=== PATIENT | female | born 1985 | race Caucasian/White ===

== ENCOUNTER 2016-09-07 22:34 | Inpatient (IN) | payer OTHER ==
[~2016-09-07] VITALS: Ht 160 cm; Wt 80.3 kg
[~2016-09-07 22:34] MED LIST: ALBU17AE22 INH; LEVO25CA2 PO; [UNRECOGNIZED DRUG - CODE] PO; [UNRECOGNIZED DRUG - CODE] PO
[2016-09-08] MEDS ORDERED: Lactated Ringer's 1,000 ML IV ONE (00:12)
[2016-09-08] MEDS ORDERED: Lactated Ringer's 1,000 ML IV PRN (00:42)
[2016-09-08] MEDS ORDERED: Oxytocin 10 Unit/mL Inj IM PRN ×2 (00:45→06:40)
[2016-09-08] MEDS ORDERED: Oxytocin 30 Units/500 mL LR 30 UNITS in IV Premix 1 EACH IV PRN ×3 (00:45→06:40)
[2016-09-08] MEDS ORDERED: Ondansetron 2 mg/mL 2 mL Inj IVPUSH PRN ×2 (00:45→03:15)
[2016-09-08] MEDS ORDERED: Sodium Chloride LOK Flush 10 mL Syringe IVFLUSH PRN (00:45)
[2016-09-08] MEDS ORDERED: Hemorrhage Kit, Post Partum XX ONE ×2 (00:45→06:40)
[2016-09-08] MEDS ORDERED: Carboprost 250 mCg/mL Inj IM PRN ×2 (00:45→06:40)
[2016-09-08] MEDS ORDERED: Methylergonovine 0.2 mg/mL Inj IM PRN ×2 (00:45→06:40)
[2016-09-08 00:54] LABS: Mean Corpuscular Hemoglobin 29.8 pg (27.0-35.0); Mean Corpuscular Volume 89.2 fL (81-100)
[2016-09-08] MEDS ORDERED: Lactated Ringer's 1,000 ML IV SCH ×2 (01:10→06:36)
--- NOTE | 2016-09-08 01:46 | PCM.HPOB ---
Subjective Date of Service: Sep 08, 2016 Referring Provider: Admitting Physician: Shad Watkins DO Primary Care Physician: Igor Dawkins MD Attending Physician: Shad Watkins DO Chief Complaint leaking fluids History of Present History of Present Illness 31-year-old G5 P 2 SAB 2 at 34 weeks 4 days by first trimester ultrasound and certain LMP presents after she began spontaneously leaking large amounts of fluid at around 2130 last evening. She has had intermittent contractions for the past 4 weeks but over the past 2-3 days these have become stronger and she feels them more in her low back. She is experiencing contractions every 3 minutes. She has had intermittent amounts of bloody show. Past medical history: 1. She is a type II diabetic that is well controlled on regular insulin 4-6 units twice a day. She is also taking metformin 1000 milligrams twice a day. 2. Hypothyroidism on levothyroxine 50 g daily. 3. History of genital warts with 4 frozen off previously in the remote past 4. PCOS Past surgical history 1. Appendectomy in 1999 2. Laparoscopic cholecystectomy in 2007 3. Right ovarian laparoscopic cystectomy in 2010 4. D&C and hysteroscopy in 2013 for endometrial polyps/fibroids OB history: She is co-managed with [facility] perinatology and since 32 weeks has been getting twice weekly NSTs and YARELY's which have been normal. echo was normal as well as quad screen. Baby has had normal growth. In her second trimester she developed maternal tachycardia and cardiology was consulted and echocardiogram was performed which returned normal. This tachycardia resolved spontaneously without intervention. She has had ongoing contractions for the past 4 weeks which has made it quite uncomfortable for her. She has had 2 previous uncomplicated 's at term Social history: She lives at home with her Zane and her 2 children. 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 Past Medical History Hx Tobacco Use: No Hx Alcohol Use: No Hx Substance Use: No Genetic Screening/Counseling Genetic Screening/Counseling: Negative Baby father-had child w defect: No Allergy Coded Allergies: Sulfa (Sulfonamide Antibiotics) (Verified Allergy, Unknown, 09/08/16) ciprofloxacin (Verified Allergy, Unknown, 09/08/16) Exam Vital Signs See GE record Exam baseline 150, positive accelerations, no decelerations, moderate beat-to- beat variability, category 1 Objective Cervix 2 cm, 30% effaced, -3, moderate consistency, midline Constitutional: Well-developed, Well-nourished, Normal habitus HEENT: Atraumatic, PERRLA, EOMI, Scleral Anicteric Lungs: Clear to Auscultation, Clear to Percussion, Normal Air Movement Heart: Exam Unremarkable, Regular Rate/Rhythm Fundus 37 cm Abdomen: Gravid, Normal bowel sounds, Soft, No tenderness Extremities: Pulses Palpable x4, Warm, No Edema Neurological/Psychiatric: Alert, Oriented X3, Cooperative, Mild Distress Neuro: Grossly Neurologically Intact Gynecologic: Normal: Adnexa/Parametria, Anus/Perineum, Bladder, Breasts, Cervix , External Genitalia, Rectal, Urethral Meatus, Uterus, Vagina/Pelvic Support Labs/Diagnostics Labs See record Lab/Diagnostic Information Laboratory Tests 72 Hours Test 09/07/16 22:45 White Blood Count 14.0th/mm3 (3.8-10.1) Red Blood Count 3.99mil/mm3 (3.90-5.20) Hemoglobin 11.9g/dL (12.0-15.6) Hematocrit 35.6% (35.0-46.0) Mean Corpuscular Volume 89.2fL (81-100) Mean Corpuscular Hemoglobin 29.8pg (27.0-35.0) Mean Corpuscular Hemoglobin Concent 33.4% (32.0-37.0) Red Cell Distribution Width 12.4% (12.3-15.4) Platelet Count 345bil/L (150-400) Maternal Blood Type: A (positive) Hx Rho(D) Immune Globulin: No Antibody Screen: negative Group B Strep Results: Negative Previous Infant with GBS: No Rubella: Immune Lab History: Positive for: Hx Chicken Pox, Negative for: Hx Gonorrhea, Hx HIV, Hx Herpes, Hx Syphilis OB Intrapartum Assessment/Plan Assessment Assessment 1. 31-year-old at 37 weeks 4 days by certain LMP and first trimester ultrasound here with spontaneous rupture of membranes at 1930 on 09/07 currently having contractions but without cervical change 2. Desires epidural 3. Reassuring heart tones 4. Well-controlled type II diabetes on insulin 5. Hypothyroidism 6. GBS negative Plan 1. After consultation with OB, initiate Pitocin augmentation 2. Epidural when patient desires, discussed with anesthesia 3. Continue NPH 4 units twice a day, metformin 1000 milligrams twice a day, monitor blood glucose before meals and at bedtime 4. Continue levothyroxine 50mcg daily 5. Expectant management Problems: (1) Status: Acute ICD Code: Z33.1 (2) Insulin dependent type 2 diabetes mellitus, controlled Status: Acute ICD Code: E11.9 (3) Hypothyroidism Status: Acute ICD Code: E03.9 (4) Spontaneous rupture of amniotic membranes Status: Acute ICD Code: [id number] Shad Watkins DO Sep 08, 2016 00:48
[2016-09-08] MEDS: Insulin Human NPH 100 Unit/mL 3 mL Inj SUBQ SCH ×2 (01:57→08:30)
[2016-09-08] MEDS ORDERED: Lactated Ringer's 500 ML IV ONE (03:14)
[2016-09-08] MEDS ORDERED: fentaNYL 2 mCg/mL-Bupiv 0.125% 100 ML EPIDURAL SCH (03:15)
[2016-09-08] MEDS ORDERED: Atropine 1 mg/10 mL (Code) Syringe IVPUSH PRN (03:15)
[2016-09-08] MEDS ORDERED: EPHEDrine Sulfate 50 mg/mL Inj IVPUSH PRN (03:15)
[2016-09-08] MEDS: Lactated Ringer's 1,000 ML IV SCH ×2 (04:21→11:14)
--- NOTE | 2016-09-08 05:43 | PCM.HPANE ---
Patient Data Surgeon Admitting Provider:Shad Watkins DO Attending Provider:Shad Watkins DO Primary Care Physician:Igor Dawkins MD Other Provider:Lidia Ohara Anesthesia Reason for Visit TERM TERM Ht/WT & BMI Body Mass Index Allergies Coded Allergies: Sulfa (Sulfonamide Antibiotics) (Verified Allergy, Unknown, 09/08/16) ciprofloxacin (Verified Allergy, Unknown, 09/08/16) Past Anesthesia History Anesthesia History: Denies:: Abnormal Airway, Anesthesia Reactions, Difficult Intubation Diabetes History Hx Diabetes?: No Current Bedside Blood Glucose: 89 MRSA MRSA: No Medications Hypertension Medication: No Home Meds Incl Beta Marie: No Reported Medications Vit 18/Iron Cb/Fa/Dss-Expunged Drug, ([facility]-Expunged Drug, Do Not Renew!)1 Each Tablet1 Each PO DAILY 09/30/13 Ondansetron (Zofran ODT 8 mg Rapid Disp Tablets)8 Mg Tab.rapdis8 Mg PO Q4-6H PRN For Nausea 09/30/13 Levothyroxine-Expunged Drug, Do Not Renew! (Tirosint-Expunged Drug, Do Not Renew !)25 Mcg Lniaejo95 Mcg PO DAILY 10/01/11 Albuterol-Expunged Drug, Do Not Renew! 8.5 Gm Aero8.5 Gm INH PRN PRN For Wheezing 06/24/11 History History of ENT Problems?: No Hx of Heart Problems?: No Hx of Respiratory Problem?: Yes Respiratory History: Positive for:: Asthma Denies:: COPD Chest Surgery Dyspnea Emphysema Hemoptysis Pneumonia Tuberculosis Hx Neurologic Problems?: Yes Neurological History: Positive for:: Dizziness (OCCAS) Headaches Hx of GI Problems?: Yes Gastrointestinal History: Positive for:: Gastroesphageal Reflux Heartburn Denies:: Diverticulitis Gastrointestinal Bleeding Hepatitis Hiatal Hernia Rectal Bleeding Hx of Problems?: No Genitourinary History: Positive for:: Urinary Tract Infection Denies:: HX of Hemodialysis Kidney Stones HX of Peritoneal Dialysis: No Female Hx: Positive for:: Currently Denies:: Endometriosis Pelvic Inflammatory Problems with Breasts? Skin History: Denies:: History Skin Disorders? Pressure Ulcers Hx Musculoskeletal Problems?: Yes Musculoskeletal History: Positive for:: Musculoskeletal Trauma (LT KNEE= CURRENT PROBLEM PREV. MCL INJURY LT KNEE) Hx of Psycho/Social Problems?: No Psycho Social History: Positive for:: Anxiety Hx Depression Denies:: Bipolar Disorder Suicide Attempt Hx Surgeries?: Yes (appy, gallbladder, wisdom teeth, cyst removal) Hx Any Other Health Problems?: Yes Other History: Positive for:: Cancer (Uterine) Hospitalization Thyroid Disease (hypothyroid) Denies:: Endocrine Disease History Blood Transfusions: Denies:: Blood Transfuse Reaction Blood Transfusions Hx Diabetes: NoBedside Blood Glucose: 89 Hx Alcohol Use: NoHx Substance Use: No Smoking Status: Never Smoker Have You Smoked inLast 12 mo: No Stop/Bang Treated for Sleep Apnea?: No Do You Have a CPAP Machine?: No Risk Assessment Category Category 1A: Patient has history of documented sleep apnea, and HAS NOT received any narcotic, sedative or anesthesia administration during this stay. Category 1B: Patient has history of documented sleep apnea, and HAS received any narcotic , sedative or anesthesia administration during this stay Category 2: Patient has SUSPECTED Obstructive Sleep Apnea, and HAS received any narcotic , sedative or anesthesia administration during this stay. Category 3: Patient has SUSPECTED Obstructive Sleep Apnea and HAS NOT received narcotic, sedative or anesthesia administration during this stay. Category 4: Outpatient in Procedural Areas with known sleep apnea or who screen positive for High Risk via the STOP/BANG questionnaire. Exam Exam General Appearance: Alert, Oriented X3, Cooperative, No Acute Distress HEENT/AIRWAY: MP 2 Lungs: Clear to Auscultation, Normal Air Movement Heart: Exam Unremarkable, Regular Rate/Rhythm, No Murmurs/Rubs/Gallops Meds/Labs/Diagnostics Admission Meds Current Medications Insulin Human NPH 4 unit 4 unit BIDAC SUBQ Last administered on 09/08/16 01:57 ; Start 09/08/16 at 01:43 Lactated Ringer's 1,000 ml @ 125 mls/hr Q8H IV Last administered on 09/08/16 01:23; Start 09/08/16 at 01:10 Lactated Ringer's (Lr) 1,000 ml @ 125 mls/hr Q8H IV Last administered on 04:21; Start 09/08/16 at 03:14; Stop 09/09/16 at 03:15 Bedside Blood Glucose: 89 Labs Test 09/07/16 22:45 White Blood Count 14.0th/mm3 (3.8-10.1) Red Blood Count 3.99mil/mm3 (3.90-5.20) Hemoglobin 11.9g/dL (12.0-15.6) Hematocrit 35.6% (35.0-46.0) Mean Corpuscular Volume 89.2fL (81-100) Mean Corpuscular Hemoglobin 29.8pg (27.0-35.0) Mean Corpuscular Hemoglobin Concent 33.4% (32.0-37.0) Red Cell Distribution Width 12.4% (12.3-15.4) Platelet Count 345bil/L (150-400) Plan Impression Patient chart reviewed, patient interviewed and anesthestic plan with risks, benefits, and alternatives discussed, and informed consent obtained. ASA Physical Status: ASA1 Normal Healthy Anesthetic Plan: Epidural Bene/Risks/Altern/Consents: Yes HP Complete Prior to Induction: Yes Steve Sal MD Sep 08, 2016 05:43
[2016-09-08] MEDS ORDERED: LANOlin HPA 7 Gm Ointment TOPICAL PRN (06:40)
[2016-09-08] MEDS ORDERED: Codeine-APAP 30-300 mg Tablet PO PRN (06:40)
[2016-09-08] MEDS ORDERED: Benzocaine (Dermoplast) 20% 60 Gm Spray TOPICAL PRN (06:40)
[2016-09-08] MEDS ORDERED: Witch Hazel-Glycerin Pads TOPICAL PRN (06:40)
--- NOTE | 2016-09-08 07:19 | PCM.OBVAG ---
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
[2016-09-08] MEDS ORDERED: Sodium Chloride LOK Flush 10 mL Syringe IVFLUSH SCH (08:30)
[2016-09-09 06:48] LABS: Mean Corpuscular Hemoglobin 29.4 pg (27.0-35.0); Mean Corpuscular Volume 90.2 fL (81-100)
--- NOTE | 2016-09-09 10:50 | PCM.DIOB ---
Obstetrical Disch Instruction Date of Service: Sep 09, 2016 Dates of Hospitalization Date of Hospital Admission Sep 07, 2016 at 23:33 Providers Admitting Physician: Shad Watkins DO Primary Care Physician: Igor Dawkins MD Attending Physician: Shad Watkins DO Discharge Diagnosis Problems: (1) Status: Resolved ICD Code: Z33.1 (2) Insulin dependent type 2 diabetes mellitus, controlled Status: Chronic ICD Code: E11.9 (3) Hypothyroidism Status: Chronic ICD Code: E03.9 (4) Spontaneous rupture of amniotic membranes Status: Resolved Diet Discharge Diet: Diabetic Activity Discharge Activity-General: Try not to overdue, Be up and about, Balance rest and activity, Activity as pain allows, Activity as energy allows, No lifting > 15 pounds for 2 weeks Dressing and Incisional Care Hygiene: May shower, Perineal care, Sitz bath, Dermoplast spray, Witch Lin pads, Ice Additional Instructions Discharge Instructions stop insulin reduce metformin to 500mg twice daily Ibuprofen 600 mg as needed for cramping Take stool softener twice daily Take iron daily along with vitamins for the next month Follow Up Plan Follow Up Plan Dr. Watkins 2 weeks for DM followup, 6 weeks for post care Call your provider for: Fever or Chills, Shortness of breath, Heavy vaginal bleeding, Heavy bleeding, Epigastric pain, Excessive constipation, Vaginal discomfort, Red painful breasts Shad Watkins DO Sep 09, 2016 10:50
[2016-09-09] MEDS ORDERED: DOCU-41 PO (10:52)
[2016-09-09] MEDS ORDERED: METF500T PO (10:52)
[2016-09-09] MEDS ORDERED: IBUP-1827 PO (10:52)
--- NOTE | 2016-09-30 06:16 | PCM.DC.OB ---
Obstetrical Discharge Summary Date of Service Sep 09, 2016 Date of hospital admission Sep 07, 2016 at 23:33 Date of Discharge: Sep 09, 2016 Providers Admitting Physician: Shad Pelaez DO Primary Care Physician: Igor Dawkins MD Attending Physician: Shad Pelaez DO Problems: (1) Status: Resolved ICD Code: Z33.1 (2) Insulin dependent type 2 diabetes mellitus, controlled Status: Chronic ICD Code: E11.9 (3) Hypothyroidism Status: Chronic ICD Code: E03.9 (4) Spontaneous rupture of amniotic membranes Status: Resolved Brief History and Physical: 31-year-old G5 P 2 SAB 2 at 34 weeks 4 days by first trimester ultrasound and certain LMP presents after she began spontaneously leaking large amounts of fluid at around 2130 last evening. She has had intermittent contractions for the past 4 weeks but over the past 2-3 days these have become stronger and she feels them more in her low back. She is experiencing contractions every 3 minutes. She has had intermittent amounts of bloody show. Past medical history: 1. She is a type II diabetic that is well controlled on regular insulin 4-6 units twice a day. She is also taking metformin 1000 milligrams twice a day. 2. Hypothyroidism on levothyroxine 50 g daily. 3. History of genital warts with 4 frozen off previously in the remote past 4. PCOS Past surgical history 1. Appendectomy in 1999 2. Laparoscopic cholecystectomy in 2007 3. Right ovarian laparoscopic cystectomy in 2010 4. D&C and hysteroscopy in 2013 for endometrial polyps/fibroids OB history: She is co-managed with [facility] perinatology and since 32 weeks has been getting twice weekly NSTs and YARELY's which have been normal. echo was normal as well as quad screen. Baby has had normal growth. In her second trimester she developed maternal tachycardia and cardiology was consulted and echocardiogram was performed which returned normal. This tachycardia resolved spontaneously without intervention. She has had ongoing contractions for the past 4 weeks which has made it quite uncomfortable for her. She has had 2 previous uncomplicated 's at term Social history: She lives at home with her Zane and her 2 children. 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 Hospital Course: Patient delivered a healthy baby boy on 09/08 weighing 2841 g, 6 lbs. 4 oz. with Apgars of 7 and 9. Her course was unremarkable and her pain was minimum. She had no perineal laceration. She did have a successful epidural placed without complications. Today she is ambulating without difficulty. She is voiding and passing gas without difficulty. She is breast-feeding. Blood sugars have remained low after delivery and she has not required any insulin. Currently taking metformin alone. Discharge physical exam: Gen. appearance: No acute distress. Alert and oriented. Well-nourished well- developed. HEENT: Pupils equally round and reactive to light. Mucous membranes moist. Neck: Supple without lymphadenopathy no thyromegaly or nodules appreciated. Heart: regular rate and rhythm without murmur rub or gallop Lungs: Clear to auscultation bilaterally. Abdomen: Uterine fundus at umbilicus, firm, nontender, nondistended, positive bowel sounds, no hepatosplenomegaly appreciated, no masses Extremities: Without edema, 2 out of 4 distal pulses. Skin: without rash Neuro: No gross deficits of cranial nerves or bilateral upper/lower extremities appreciated. Albuterol-Expunged Drug, Do Not Renew! (Albuterol-Expunged Drug, Do Not Renew!) 8.5 Gm Aero 8.5 GM INH PRN PRN PRN For Wheezing (Reported) Docusate Sodium (Colace) 100 Mg Capsule 100 MG PO BID Prescribed by: SHAD PELAEZ, DO Ibuprofen (Ibuprofen) 600 Mg Tablet 600 MG PO Q6H PRN PRN For Mild Pain Prescribed by: SHAD PELAEZ, DO Levothyroxine-Expunged Drug, Do Not Renew! (Tirosint-Expunged Drug, Do Not Renew !) 25 Mcg Capsule 50 MCG PO DAILY (Reported) Metformin (Glucophage) 500 Mg Tablet 500 MG PO BIDWM Prescribed by: SHAD PELAEZ, DO Vit 18/Iron Cb/Fa/Dss-Expunged Drug, ([facility]-Expunged Drug, Do Not Renew!) 1 Each Tablet 1 EACH PO DAILY (Reported) Disposition Home Follow-up plan Follow-up in [address] Pelaez for blood sugar recheck and then again in 4-6 weeks for visit and to discuss control options. Discharge Diet: No restrictions Discharge Activity-General: Pelvic Rest for 6 weeks, Try not to overdue, Be up and about, Balance rest and activity, Activity as pain allows, Activity as energy allows Time spent 30 minutes Shad Pelaez DO Sep 09, 2016 10:53
== END 2016-09-09 13:45 | disposition home or self-care (01) | DRG 774 ==
LOC: FBCO 22:34 → FBC 23:33 → OBSVTOIN 23:33 → INTOOBSV 09-08 01:00
PROVIDERS: ADMIT Emergency Medicine; ATTEND Emergency Medicine
PROC: 10E0XZZ Delivery of Products of Conception, External Approach (ICD-10-PCS; principal; 2016-09-08)
DX: O24.12 Pre-existing type 2 diabetes mellitus, in childbirth (principal); Z37.0 Single live birth; E11.9 Type 2 diabetes mellitus without complications; O99.284 Endocrine, nutritional and metabolic diseases complicating childbirth; E03.9 Hypothyroidism, unspecified; Z79.4 Long term (current) use of insulin; Z3A.37 37 weeks gestation of pregnancy